=== PATIENT | female | born 1945 | race Caucasian/White ===

== ENCOUNTER 2022-08-14 12:32 | Emergency (ER) | payer OTHER ==
[~2022-08-14] VITALS: Ht 142.2 cm; Wt 50.9 kg
[2022-08-14 12:42] VITALS: BP 174/119
--- NOTE | 2022-08-14 13:00 | NUR ---
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 DENIES LOC. PMH: MILD INTELLECTUAL DISABILITY, IMPULSE CONTROL DISORDER, ANXIETY DISORDER, DEPRESSION, HYSTERECTOMY
--- NOTE | 2022-08-14 14:31 | NUR ---
PT AMBULATED TO ER BED 6
--- NOTE | 2022-08-14 14:39 | NUR ---
XRAY AT BEDSIDE
[2022-08-14] MEDS ORDERED: ACETAMINOPHEN EXTRA STRENGTH 500 MG TAB PO ONE (16:00)
[2022-08-14 16:30] VITALS: BP 112/70
--- NOTE | 2022-08-14 16:31 | NUR ---
Patient discharged with v/s stable. Written and verbal after care instructions given and explained. Patient AND CAREGIVER verbalized understanding. Ambulatory with steady gait. All questions addressed prior to discharge. Advised to follow up with PMD.
== END 2022-08-14 16:31 | disposition home or self-care (01) ==
LOC: MED 12:32
DX: S02.2XXA Fracture of nasal bones, initial encounter for closed fracture (principal); I10 Essential (primary) hypertension; W19.XXXA Unspecified fall, initial encounter; Y93.89 Activity, other specified; Y92.89 Other specified places as the place of occurrence of the external cause; Y99.8 Other external cause status
CPT/HCPCS: 70450; 70486; 72125; 73562; 99285